=== PATIENT | male | born 1950 | race Caucasian/White ===

== ENCOUNTER → 2018-08-02 | Day surgery (SDC) | payer MEDICARE, OTHER ==
[~2018-08-02] MED LIST: ALBUTEROL0.63 MG/3; BLOOD PRESSURE; CEFAZOLIN SOD 1 GM VIAL ONE; CLOTRIMAZOLE15 GM TOP; COLACE100 MG PO; DEXAMETHASONE SOD PHOS INJ 4 MG/ML VIAL ONE; FLOMAX0.4 MG PO; HYDROCORTISONE TOP; IOPAMIDOL 610MG/1ML 300 MG/ML VIAL IV ONE; IPRATROPIU0.2 MG/1 M NEB; LACTULOSE20 GM/30 M PO; LISINOPRIL10 MG PO; MIRTAZAPINE15 MG PO; MOTRIN200 MG PO; MUSCLE RUB CREA85 GM TOP; ONDANSETRON HCL INJ 2 MG/ML VIAL ONE; PEPTO-BISM262 MG/15 PO; PRAVASTATIN SOD20 MG PO; PREDNISOLONE EYE; PROPOFOL IV EMULSION 10 MG/ML 20 ML VIAL ONE; REMERON15 MG; SEIZURE MED; SENNA LAX8.6 MG PO; SEVOFLURANE INHAL SOLN 250 ML PEN BTL ONE; SODIUM; SODIUM BICARBO650 MG PO; SODIUM CHLORIDE1 GM PO; SPIRIVA18 MCG INH; SUDOGEST30 MG PO; TEGRETOL200 MG PO; TOBRAMYCIN 40 MG/ML 2ML VIAL ONE
[2018-08-02 10:09] LABS: BASOPHILS # (AUTO) 0.1 (0.0-0.1); BASOPHILS % 1.3 % (0.0-1.0); EOSINOPHILS # (AUTO) 0.1 (0.0-0.4); EOSINOPHILS % 1.9 % (0.0-6.0); HEMATOCRIT 35.8 % (38.2-49.6); MEAN CORPUSCULAR HEMOGLOBIN 30.1 pg (28-32); MEAN CORPUSCULAR HGB CONC 33.5 g/dL (31-35); MEAN CORPUSCULAR VOLUME 89.7 fL (81-99); MONOCYTES # (AUTO) 0.6 (0.2-0.8); MONOCYTES % 9.3 % (4.4-11.3); NEUTROPHILS # (AUTO) 3.8 (2.1-6.9); NEUTROPHILS % 57.2 % (38.7-80.0); PLATELET COUNT 302 x10e3/uL (140-360); RED BLOOD COUNT 3.99 x10e6/uL (4.3-5.7); RED CELL DISTRIBUTION WIDTH 14.4 % (11.7-14.4)
[2018-08-02 10:27] LABS: ANION GAP 13.5 mmol/L (8-16); BLOOD UREA NITROGEN 11 mg/dL (7-26); BUN/CREATININE RATIO 16 (6-25); CALCIUM 9.1 mg/dL (8.4-10.2); CARBON DIOXIDE 27 mmol/L (22-29); CHLORIDE 95 mmol/L (98-107); EST GLOMERULAR FILTRATION RATE > 60 ML/MIN (60-); GLUCOSE 83 mg/dL (74-118); POTASSIUM 4.5 mmol/L (3.5-5.1); SODIUM 131 mmol/L (136-145)
--- NOTE | 2018-08-02 11:01 | Diagnostic Imaging Report ---
PROCEDURE: Frontal and lateral views of the chest. COMPARISON: None. INDICATIONS: pre-op , prostate surgery. hx copd. denies chest complaints FINDINGS: Lines/tubes: None. Lungs: The lungs are hyperinflated.There is no evidence of pneumonia or pulmonary edema. Pleura: There is no pleural effusion or pneumothorax. Heart and mediastinum: The cardiomediastinal silhouette is unremarkable. Bones: No acute bony abnormality. IMPRESSION: Emphysematous changes of the lungs without evidence of pneumonia or pulmonary edema. Dictated by: DORENE DUMONT M.D. on 08/02/2018 at 11:08 Electronically approved by: DORENE DUMONT M.D. on 08/02/2018 at 11:08
[2018-08-02 13:50] VITALS: BP 120/82
--- NOTE | 2018-08-02 15:36 | Operative Report ---
DATE OF PROCEDURE: August 02, 2018 PREOPERATIVE DIAGNOSES 1. Benign prostatic hypertrophy with obstruction. 2. Frequency. 3. Urinary tract infection. 4. Impotency. POSTOPERATIVE DIAGNOSES 1. Benign prostatic hypertrophy with obstruction. 2. Frequency. 3. Urinary tract infection. 4. Impotency. OPERATIONS PERFORMED 1. Cystoscopy and bilateral retrograde pyelograms under fluoroscopic control. 2. Interpretation of x-ray, radiologist not present. 3. Supervision fluoroscopy, radiologist not present. 4. Treatment of the prostate with plasma removal of the prostatic tissue. TECHNICAL AIDE: None. ANESTHESIA: General. CLINICAL INDICATION NOTE: This is a 67-year-old patient with significant voiding problem and does have BPH with obstruction with frequency, hesitancy, as well as UTIs. He was brought for assessment of the lower and upper tract and ablation of the prostate. The patient has a history of impotency. Has a penile implant which is not functioning. Procedure was discussed with the patient. Potential benefits and complications discussed with him and accepted. DESCRIPTION OF PROCEDURE AND FINDINGS: After proper level of anesthesia was achieved, the patient was placed in lithotomy position, prepped and draped in usual sterile fashion. Urethra inspected is unremarkable. Bladder outlet is obstructed by trilobar prostate. Bladder is extensively trabeculated. Bladder diverticula are present. No tumor or foreign body seen. Cone-tipped catheter was used to do bilateral retrograde pyelograms under fluoroscopic control. The left side appeared to be unremarkable. The right side of the pelvic is somewhat prominent. There is minimal dilation of the calices of the system drains. Following this, the resectoscope was inserted and the plasma removal of the prostatic tissue was done. The mid lobe was treated first and then both lateral lobes. After completion removal of the prostatic tissue, any visible bleeding points were carefully coagulated. A 22, 3-way Vences catheter was then inserted and the patient was transferred in satisfactory condition to recovery room. Irrigation of the bladder was continued while in recovery. Patient was given postop instructions as well as followup. Job#: [id number]
== END | disposition home or self-care (01) ==
LOC: OR 08:46
PROVIDERS: ATTEND Urology
DX: N40.1 Benign prostatic hyperplasia with lower urinary tract symptoms (principal); I10 Essential (primary) hypertension; N39.0 Urinary tract infection, site not specified; J44.9 Chronic obstructive pulmonary disease, unspecified; I69.393 Ataxia following cerebral infarction; R35.0 Frequency of micturition; N52.9 Male erectile dysfunction, unspecified
CPT/HCPCS: 36415; 52005; 52601; 71046; 74420; 80048; 85025; 93005; C1758; J0690; J1100; J2405; J3260; Q9967